=== PATIENT | female | born 1990 | race Caucasian/White ===

== ENCOUNTER 2016-10-09 17:45 | Emergency (ER) | payer OTHER ==
[2016-10-09 17:57] VITALS: RESP 16
[2016-10-09] MEDS ORDERED: MAG HYDROX/AL HYDROX/SIMETH 30 ML, HYOSCYAMINE ELIXIR 10 ML, CIMETIDINE HCL 300 MG, LID... PO STA ×4 (18:11)
--- NOTE | 2016-10-09 18:42 | ED ---
General Adult HPI - General Chief complaint: Allergic Reaction Stated complaint: Allergic Reaction Time Seen by Provider: 10/09/16 18:05 Source: patient, RN notes reviewed Mode of arrival: ambulatory Limitations: no limitations - History of Present Illness Initial comments: Patient's 26-year-old female who presents emergency room today with a chief complaint of possible ALLERGIC reaction. She states she feels like something stuck in her throat. She states that it's been going on for the last 2 days. She states that earlier today approximate 5 PM she felt like she broke doctor rash is feeling very hot. She states that she began new medications of both by second Lexapro recently over the past week due to abdominal pain that she was experiencing. Patient denies any other complaints or symptoms. Denies any family history of cardiac disease. Patient denies any recent fever, chills, shortness of breath,back pain, abdominal pain, nausea or vomiting, numbness or tingling, dysuria or hematuria, constipation or diarrhea, headaches or visual changes, or any other complaints. - Related Data Home Medications Medication Instructions Recorded Confirmed Omeprazole 20 mg PO DAILY 03/14/16 10/09/16 Escitalopram [Lexapro] 10 mg PO DAILY 10/09/16 10/09/16 L.acidoph,Paracasei, B.lactis 1 cap PO DAILY 10/09/16 10/09/16 [Probiotic] Multivit with Calcium,Iron,Min 1 tab PO DAILY 10/09/16 10/09/16 [Women's Multivitamin] Previous Rx's Medication Instructions Recorded predniSONE 60 mg PO DAILY 5 Days 10/09/16 Allergies Allergy/AdvReac Type Severity Reaction Status Date / Time No Known Allergies Allergy Verified 10/09/16 18:51 Review of Systems ROS Statement: Those systems with pertinent positive or pertinent negative responses have been documented in the HPI. ROS Other: All systems not noted in ROS Statement are negative. Past Medical History Past Medical History: GERD/Reflux Additional Past Medical History / Comment(s): stomach discomfort History of Any Multi-Drug Resistant Organisms: None Reported Past Surgical History: Appendectomy Past Anesthesia/Blood Transfusion Reactions: No Reported Reaction Past Psychological History: No Psychological Hx Reported Smoking Status: Never smoker Past Alcohol Use History: Occasional Past Drug Use History: None Reported - Past Family History Mother Family Medical History: No Reported History General Exam - General Exam Comments Initial Comments: General: The patient is awake and alert, in no distress, and does not appear acutely ill. Eye: Pupils are equal, round and reactive to light, extra-ocular movements are intact. No nystagmus. There is normal conjunctiva bilaterally. No signs of icterus. Ears, nose, mouth and throat: There are moist mucous membranes and no oral lesions. Neck: The neck is supple, there is no tenderness or JVD. Cardiovascular: There is a regular rate and rhythm. No murmur, rub or gallop is appreciated. Respiratory: Lungs are clear to auscultation, respirations are non-labored, breath sounds are equal. No wheezes, stridor, rales, or rhonchi. Gastrointestinal: Soft, non-distended, non-tender abdomen without masses or organomegaly noted. There is no rebound or guarding present. No CVA tenderness. Bowel sounds are unremarkable. Musculoskeletal: Normal ROM, no tenderness. Strength 5/5. Sensation intact. Pulses equal bilaterally 2+. Neurological: A&O x 3. CN II-XII intact, There are no obvious motor or sensory deficits. Coordination appears grossly intact. Speech is normal. Skin: Skin is warm and dry and no rashes or lesions are noted. Psychiatric: Cooperative, appropriate mood & affect, normal judgment. Limitations: no limitations Course Vital Signs 10/09/16 17:53 Temperature 97.0 F L Pulse Rate 79 Respiratory 16 Rate Blood Pressure 117/72 O2 Sat by Pulse 97 Oximetry EKG Findings - EKG Comments: EKG Findings:: EKG performed at 1801: A 12-lead EKG was performed and interpreted by me as showing the following: Rate is 63, and rhythm is normal sinus. There are normal QRS complexes and normal R-wave progression. ST segments have no elevation or depression, and IL segments appear normal. Medical Decision Making - Medical Decision Making Case discussed in detail with attending physician Dr. Hernandez. Patient's vitals stable. Patient reexamined at this time shows no signs of distress. EKG shows normal sinus rhythm. Chest x-rays negative. Patient's symptoms been ongoing over the last 2 days. There is no rash or the emergency room. Patient advised to use Benadryl advised use half dose of her Lexapro follow-up family doctor tomorrow. Will be given a prescription for steroids. Advised to use if the rash returns or if any symptoms increase worsen. Disposition Clinical Impression: Allergic reaction Disposition: HOME SELF-CARE Condition: Good Instructions: Urticaria (ED) Additional Instructions: Please follow-up with family doctor tomorrow and discuss decreasing dose of Lexapro. Please use Benadryl one to 2 tabs every 6 hours as needed. Please use steroids as prescribed if the rash returns. Please return to emergency room for any other concerns. Prescriptions: predniSONE 60 mg PO DAILY 5 Days Referrals: Bebe Arndt MD [Primary Care Provider] - 1-2 days Time of Disposition: 19:31
--- NOTE | 2016-10-09 18:52 | XR ---
EXAMINATION TYPE: XR chest 2V DATE OF EXAM: 10/09/2016 6:47 PM COMPARISON: NONE HISTORY: Cough per order. Additional symptoms of lower chest pain per patient. TECHNIQUE: Frontal and lateral views of the chest are obtained. FINDINGS: There is no focal air space opacity, pleural effusion, or pneumothorax seen. The cardiac silhouette size is within normal limits. The osseous structures are intact. Impression: No acute process identified.
[2016-10-09 20:18] VITALS: BP 135/87; PULSE 87; TEMP 97.8
== END 2016-10-09 20:17 | disposition home or self-care (01) ==
LOC: EC 17:45
DX: T78.40XA Allergy, unspecified, initial encounter (principal); K21.9 Gastro-esophageal reflux disease without esophagitis; Z79.899 Other long term (current) drug therapy
CPT/HCPCS: 71020; 93005; 99283

== ENCOUNTER 2017-04-20 11:16 | Emergency (ER) | payer OTHER ==
[2017-04-20] MEDS ORDERED: IBUPROFEN 600 MG TAB PO STA (11:45)
[2017-04-20 11:48] VITALS: BP 141/70; PULSE 105; RESP 18
--- NOTE | 2017-04-20 11:58 | ED ---
General Adult HPI - General Chief complaint: Extremity Injury, Upper Stated complaint: RT WRIST INJURY FROM FALL Time Seen by Provider: 04/20/17 11:25 Source: patient, RN notes reviewed Mode of arrival: ambulatory Limitations: no limitations - History of Present Illness Initial comments: Patient is a 26-year-old female who presents emergency room today with chief complaint of a right wrist injury that occurred approximately 3) she does admit that she had socks and the floor was slippery when she is trying to kick a mattress pad lost her balance falling backwards on the right wrist. Patient states that she does have tenderness with certain movements of flexion and extension at the right wrist. She denies any head injury or loss consciousness. Denies any other complaints. Patient denies any recent fever, chills, shortness of breath, chest pain, back pain, abdominal pain, nausea or vomiting, numbness or tingling, headaches or visual changes, or any other complaints. - Related Data Home Medications Medication Instructions Recorded Confirmed Escitalopram [Lexapro] 10 mg PO DAILY 10/09/16 04/20/17 Previous Rx's Medication Instructions Recorded Ibuprofen [Motrin] 800 mg PO Q6HR #30 tab 04/20/17 Allergies Allergy/AdvReac Type Severity Reaction Status Date / Time No Known Allergies Allergy Verified 04/20/17 12:25 Review of Systems ROS Statement: Those systems with pertinent positive or pertinent negative responses have been documented in the HPI. ROS Other: All systems not noted in ROS Statement are negative. Past Medical History Past Medical History: GERD/Reflux Additional Past Medical History / Comment(s): stomach discomfort History of Any Multi-Drug Resistant Organisms: None Reported Past Surgical History: Appendectomy Past Anesthesia/Blood Transfusion Reactions: No Reported Reaction Past Psychological History: No Psychological Hx Reported Smoking Status: Never smoker Past Alcohol Use History: Occasional Past Drug Use History: None Reported - Past Family History Mother Family Medical History: No Reported History General Exam - General Exam Comments Initial Comments: General: The patient is awake and alert, in no distress, and does not appear acutely ill. Neck: The neck is supple, there is no tenderness or JVD. Cardiovascular: There is a regular rate and rhythm. No murmur, rub or gallop is appreciated. Respiratory: Lungs are clear to auscultation, respirations are non-labored, breath sounds are equal. No wheezes, stridor, rales, or rhonchi. Musculoskeletal: Patient does have a normal appearance of the right wrist. There is some mild swelling. Shows limited range of motion with flexion and extension and with supination. Tender to palpation minimally over the distal ulna with increased tenderness to the distal radius. Full range motion of the right digits down to the hand. No tenderness. No tenderness to right elbow. Sensations intact pulses equal bilateral 2+. Neurological: A&O x 3. CN II-XII intact, There are no obvious motor or sensory deficits. Coordination appears grossly intact. Speech is normal. Skin: Skin is warm and dry and no rashes or lesions are noted. Psychiatric: Normal mood and affect. Limitations: no limitations Course Vital Signs 04/20/17 04/20/17 11:21 11:45 Temperature 97.9 F Pulse Rate 83 105 H Respiratory 16 18 Rate Blood Pressure 115/73 141/70 O2 Sat by Pulse 100 97 Oximetry Medical Decision Making - Medical Decision Making X-ray reviewed and negative for any acute fracture dislocation. Patient does have tenderness in the snuffbox of the right wrist. Has been splinted in a short arm thumb spica OCL. Neurovascular rechecked and intact. Patient was called orthopedics in the next 2 days. Advised continued ice elevate the affected area. Disposition Clinical Impression: Wrist injury Disposition: HOME SELF-CARE Condition: Good Instructions: Wrist Injury (ED) Additional Instructions: Please follow-up orthopedics over the next 2 days. Please leave splint in place until follow-up appointment. Please continue to ice elevate the affected areas 4 times a day for 20 minutes at a time. Please use pain medication as prescribed. Please return to emergency room for any other concerns. Prescriptions: Ibuprofen [Motrin] 800 mg PO Q6HR #30 tab Referrals: Bebe Arndt MD [Primary Care Provider] - 1-2 days Alex Mesa MD [STAFF PHYSICIAN] - 1-2 days Time of Disposition: 12:35
--- NOTE | 2017-04-20 12:31 | XR ---
EXAMINATION TYPE: XR wrist complete RT DATE OF EXAM: 04/20/2017 COMPARISON: NONE HISTORY: 26 year-old female with pain after fall TECHNIQUE: 4 views FINDINGS: The radiocarpal and and distal radioulnar joints as well as the midcarpal compartment appear intact. No acute fracture, subluxation, or dislocation seen. IMPRESSION: No acute osseous abnormality seen.
[2017-04-20 12:44] VITALS: TEMP 98.1
== END 2017-04-20 12:40 | disposition home or self-care (01) ==
LOC: EC 11:16
DX: S69.91XA Unspecified injury of right wrist, hand and finger(s), initial encounter (principal); Z79.899 Other long term (current) drug therapy; W01.0XXA Fall on same level from slipping, tripping and stumbling without subsequent striking against object, initial encounter
CPT/HCPCS: 29125; 99283

== ENCOUNTER 2017-08-13 14:07 | Emergency (ER) | payer OTHER ==
--- NOTE | 2017-08-13 14:58 | ED ---
Abdominal Pain HPI - General Chief Complaint: Abdominal Pain Stated Complaint: 15 wks preg/cramping Time Seen by Provider: 08/13/17 14:29 Source: patient Mode of arrival: ambulatory Limitations: no limitations - History of Present Illness Initial Comments: 26-year-old female patient presents to the emergency department today with complaints of labial swelling and suprapubic cramping. Patient states that the symptoms started early today. States and she was taking a shower she noticed that her bilateral labia seemed more swollen than usual. She states she is also been having lower abdominal cramping since early this morning. She denies any abnormal vaginal bleeding or discharge. Patient states she is having some mild dysuria and urinary frequency. She states that she is 15 weeks . She is . States that she did have her last appointment 1 week ago. Did have STD testing and Pap smear at that time. She denies any constipation or diarrhea. Denies any fevers or chills. Patient denies any recent rash, shortness breath, chest pain, nausea, vomiting, numbness, tingling , dizziness, weakness, hematuria, headache, visual changes, or any other complaints. - Related Data Home Medications Medication Instructions Recorded Confirmed Gummy 1 tab PO DAILY 08/13/17 08/13/17 Allergies Allergy/AdvReac Type Severity Reaction Status Date / Time No Known Allergies Allergy Verified 08/13/17 14:47 Review of Systems ROS Statement: Those systems with pertinent positive or pertinent negative responses have been documented in the HPI. ROS Other: All systems not noted in ROS Statement are negative. Past Medical History Past Medical History: GERD/Reflux Additional Past Medical History / Comment(s): stomach discomfort History of Any Multi-Drug Resistant Organisms: None Reported Past Surgical History: Appendectomy Past Anesthesia/Blood Transfusion Reactions: No Reported Reaction Past Psychological History: No Psychological Hx Reported Smoking Status: Never smoker Past Alcohol Use History: Occasional Past Drug Use History: None Reported - Past Family History Mother Family Medical History: No Reported History General Exam Limitations: no limitations General appearance: alert, in no apparent distress, other (This is a well- developed, well-nourished adult female patient in no acute distress. Vital signs upon presentation are temperature 98.0F, pulse 94, respirations 20, blood pressure 118/58, pulse ox 99% on room air.) Eye exam: Present: normal appearance, PERRL, EOMI. Absent: scleral icterus, conjunctival injection, periorbital swelling Respiratory exam: Present: normal lung sounds bilaterally. Absent: respiratory distress, wheezes, rales, rhonchi, stridor Cardiovascular Exam: Present: regular rate, normal rhythm, normal heart sounds. Absent: systolic murmur, diastolic murmur, rubs, gallop, clicks GI/Abdominal exam: Present: soft, tenderness (Suprapubic tenderness), normal bowel sounds. Absent: distended, guarding, rebound, rigid External exam: Present: normal external exam, swelling (Mild generalized labial swelling), other (No tenderness or external discharge.). Absent: erythema, lesions, lacerations, ecchymosis Neurological exam: Present: alert, oriented X3, CN II-XII intact Psychiatric exam: Present: normal affect, normal mood Skin exam: Present: warm, dry, intact, normal color. Absent: rash Course Vital Signs 08/13/17 08/13/17 14:21 16:33 Temperature 98.0 F 97.6 F Pulse Rate 94 89 Respiratory 20 18 Rate Blood Pressure 118/58 112/68 O2 Sat by Pulse 99 99 Oximetry Medical Decision Making - Lab Data Lab Results 08/13/17 Range/Units 14:52 Urine Color Light Yellow Urine Appearance Clear (Clear) Urine pH 7.0 (5.0-8.0) Ur Specific [place] 1.008 (1.001-1.035) Urine Protein Negative (Negative) Urine Glucose (UA) Negative (Negative) Urine Ketones Negative (Negative) Urine Blood Negative (Negative) Urine Nitrite Negative (Negative) Urine Bilirubin Negative (Negative) Urine Urobilinogen <2.0 (<2.0) mg/dL Ur Leukocyte Esterase Negative (Negative) - Radiology Data Radiology results: report reviewed, image reviewed 26-year-old female patient presented to the emergency department today for complaints of lower abdominal cramping and swelling in her bilateral labia. Physical examination reveals very mild swelling to the bilateral labia with no redness, tenderness, or evidence of fluid collection. Abdomen is soft and nontender. Urinalysis is negative for any acute abnormalities. Did perform ultrasound of the abdomen and fetus which showed no acute complications. Patient will be discharged home at this time to follow-up with her SURGERY NURSE as soon as possible. She is instructed to return here immediately for any new, worsening, or concerning symptoms. She verbalizes understanding and agrees with this plan. Disposition Clinical Impression: Abdominal pain during , Labial swelling Disposition: HOME SELF-CARE Condition: Good Instructions: Abdominal Pain in (ED) Additional Instructions: Follow-up with your SURGERY NURSE as soon as possible. Return here immediately for any new, worsening, or concerning symptoms. Referrals: Bebe Arndt MD [Primary Care Provider] - 1-2 days Time of Disposition: 16:21
[2017-08-13 15:04] LABS: Appearance,Urine Clear (Clear); Bilirubin,Urine Negative (Negative); Blood,Urine Negative (Negative); Color,Urine Light Yellow; Glucose,Urine (UA) Negative (Negative); Ketones,Urine Negative (Negative); Leukocyte Esterase,Urine Negative (Negative); Nitrite,Urine Negative (Negative); Protein,Urine Negative (Negative); Specific Gravity,Urine 1.008 (1.001-1.035); Urobilinogen,Urine <2.0 mg/dL (<2.0)
--- NOTE | 2017-08-13 16:07 | US ---
EXAMINATION TYPE: US OB >= 14 wk fetus Early second trimester. DATE OF EXAM: 08/13/2017 COMPARISON: None CLINICAL HISTORY: Pain TECHNIQUE: Transabdominal (TA) GESTATIONAL AGE / DATING Physician Established: (15 weeks/4 days) EDC: 01/31/18 Dates by LMP: LMP unknown (Dates by First Scan: 15 weeks/4 days) EDC: 01/31/18 Dates by Current Scan: (16 weeks/0 days) EDC: 01/28/18 SURVEY IUP: Single PLACENTA: Posterior PREVIA: possibly low lying, difficult to assess due to age SHARIFA: 13.0 cm CERVICAL LENGTH (transabdominal: norm > 3.0cm): 3.1 cm BIOMETRY PRESENTATION: Vertex BPD: 3.2 cm 16.0 weeks / 0 days HC: 12.1 cm 16 weeks / 0 days AC: 9.7 cm 15 weeks / 6 days FL: 1.9 cm 15 weeks / 5 days ESTIMATED WEIGHT IN GRAMS: 135 grams ESTIMATED WEIGHT IN LBS/OZ: 0 lbs. 5 oz. WEIGHT PERCENTAGE BASED ON ESTABLISHED DATES: 57.2% HC/AC: 1.2 FL/AC: 19.9 HEART RATE: 141 bpm RHYTHM: Normal Single live intrauterine gestation is confirmed. Normal cephalad presentation to fetus is currently i dentified. There is no convincing ultrasound evidence for placenta previa, calvarium obscures p ortion of cervix however. Amniotic fluid index is felt within normal limits. biometry measureme nts are congruent and felt within normal limits. IMPRESSION: As above, no ultrasound evidence for complication.
[2017-08-13 16:34] VITALS: BP 112/68; PULSE 89; RESP 18; TEMP 97.6
== END 2017-08-13 16:34 | disposition home or self-care (01) ==
LOC: EC 14:07
DX: O26.892 Other specified pregnancy related conditions, second trimester (principal); R10.30 Lower abdominal pain, unspecified; O99.89 Other specified diseases and conditions complicating pregnancy, childbirth and the puerperium; N90.89 Other specified noninflammatory disorders of vulva and perineum; R30.0 Dysuria; R35.0 Frequency of micturition; Z79.899 Other long term (current) drug therapy; Z90.49 Acquired absence of other specified parts of digestive tract; Z3A.15 15 weeks gestation of pregnancy
CPT/HCPCS: 76805; 81003; 99284

== ENCOUNTER 2018-01-31 10:54 | Inpatient (IN) | payer OTHER ==
[2018-02-06] MEDS ORDERED: OXYTOCIN 10 UNIT/ML 1 ML VIAL IM PRN (06:20)
[2018-02-06] MEDS ORDERED: TERBUTALINE 1 MG/ML VIAL SQ PRN (06:20)
[2018-02-06] MEDS ORDERED: CARBOPROST TROMETHAMINE 250 MCG/ML 1 ML AMP IM PRN (06:20)
[2018-02-06] MEDS ORDERED: METHYLERGONOVINE 0.2 MG/ML 1 ML AMP IM PRN (06:20)
[2018-02-06] MEDS ORDERED: LIDOCAINE HCL/PF 20 MG/ML ML SQ PRN (06:20)
[2018-02-06 06:29] VITALS: BMI 39.1
[2018-02-06] MEDS ORDERED: OXYTOCIN 20 UNITS/1000 ML NS 1,000 ML IV SCH (06:30)
[2018-02-06] MEDS: LACTATED RINGERS 1,000 ML IV SCH ×2 (06:33→19:21)
[2018-02-06 06:38] LABS: Basophils % (A) 0 %; Eosinophils # (A) 0.1 k/uL (0-0.7); Eosinophils % (A) 1 %; HGB 12.1 gm/dL (11.4-16.0); Lymphocytes # (A) 1.9 k/uL (1.0-4.8); Lymphocytes % (A) 18 %; MCH 31.1 pg (25.0-35.0); MCHC 33.5 g/dL (31.0-37.0); MCV 92.7 fL (80.0-100.0); Mean Platelet Volume 9.8; Monocytes # (A) 0.5 k/uL (0-1.0); Monocytes % (A) 5 %; Neutrophils # (A) 7.5 k/uL (1.3-7.7); Neutrophils % (A) 73 %; Platelet Count 191 k/uL (150-450); RBC 3.88 m/uL (3.80-5.40); RDW 13.3 % (11.5-15.5); WBC 10.2 k/uL (3.8-10.6)
--- NOTE | 2018-02-06 08:27 | P.HPOB ---
History of Present Illness H&P Date: 02/06/18 Chief Complaint: IUP at 40-6/7 weeks This is a 27-year-old 1 para 0 at 40-6/7 weeks that presents to labor and delivery for induction of labor secondary to postdates. Patient states irregular contractions, good movement denies vaginal bleeding or loss of fluid. blood work she has a blood type of O+, rubella immune, hepatitis B surface antigen negative, GBS negative, HIV negative, RPR nonreactive. Next para patient has been receiving routine care, and transferred into my office at 24 weeks of gestation. Review of Systems Constitutional: Denies chills, Denies fatigue, Denies fever Ears, nose, mouth and throat: Denies headache Cardiovascular: Reports leg edema, Denies chest pain Respiratory: Denies cough, Denies dyspnea Gastrointestinal: Denies constipation, Denies diarrhea Genitourinary: Reports Past Medical History Past Medical History: GERD/Reflux Additional Past Medical History / Comment(s): stomach discomfort History of Any Multi-Drug Resistant Organisms: None Reported Past Surgical History: Appendectomy Past Anesthesia/Blood Transfusion Reactions: No Reported Reaction Past Psychological History: No Psychological Hx Reported Smoking Status: Never smoker Past Alcohol Use History: Occasional Past Drug Use History: None Reported - Past Family History Mother Family Medical History: No Reported History Medications and Allergies Home Medications Medication Instructions Recorded Confirmed Type Gummy 1 tab PO DAILY 08/13/17 02/06/18 History Allergies Allergy/AdvReac Type Severity Reaction Status Date / Time No Known Allergies Allergy Verified 02/06/18 06:19 Exam Osteopathic Statement: *. No significant issues noted on an osteopathic structural exam other than those noted in the History and Physical/Consult. Vital Signs Temp Pulse Resp BP Pulse Ox 02/06/18 06:17 97.1 F L 97 18 126/68 98 Intake and Output 02/05/18 02/06/18 02/06/18 22:59 06:59 14:59 Other: Weight 100.244 kg - OBG Physical Exam Abdomen: gravid Cervix: 1/50/-2, AROM clear fluid obtained without difficulty Uterus: enlarged Results Result Diagrams: 02/06/18 06:20 Assessment and Plan (1) Post-dates Current Visit: Yes Status: Acute Code(s): O48.0 - POST-TERM SNOMED Code(s): 21015433 Plan: Admit to labor and delivery for Pitocin induction of labor. Patient does desire epidural eventually for pain control. Time with Patient: Less than 30
[2018-02-06] MEDS ORDERED: BUTORPHANOL 1 MG/ML 1 ML VIAL IV PRN (13:03)
[2018-02-06] MEDS ORDERED: fentaNYL (PF) 50 MCG/ML 5 ML AMP ONE ×2 (15:18→23:34)
[2018-02-06] MEDS ORDERED: ROPIVACAINE 5MG/ML 20ML VIAL ONE ×2 (15:18→23:34)
[2018-02-06] MEDS ORDERED: SODIUM CHLORIDE 0.9% 100 ML BAG ONE ×2 (15:18→23:34)
[2018-02-06] MEDS ORDERED: ceFAZolin IN SWFI 2 GM/20 ML SYRINGE IVP ONE (22:15)
[2018-02-06] MEDS ORDERED: CITRIC ACID-SODIUM CITRATE 15 ML CUP PO ONE (22:15)
[2018-02-06] MEDS ORDERED: ONDANSETRON 4 MG/2 ML VIAL ONE (23:34)
[2018-02-06] MEDS ORDERED: KETOROLAC 30 MG/ML 1 ML VIAL ONE (23:34)
--- NOTE | 2018-02-07 00:48 | P.OP ---
Date of Procedure: 02/07/18 Preoperative Diagnosis: IUP at 40-6/7 weeks, arrest of first stage of labor Postoperative Diagnosis: Same Procedure(s) Performed: Primary low transverse section Anesthesia: epidural Surgeon: Meghna Crocker Slip Cover Sewer #1: Mae Barrow Estimated Blood Loss (ml): 500 IV fluids (ml): 800 Urine output (ml): 200 Pathology: none sent Condition: stable Disposition: PACU Indications for Procedure: Arrest of first stage of labor Operative Findings: Normal uterus tubes and ovaries were appreciated, male was delivered at 2351, weight of 9 lbs. 1 oz., Apgars of 9 and 9 at one and 5 minutes respectively Description of Procedure: The patient was prepped and draped in the usual fashion after epidural anesthesia was found be adequate. A Pfannenstiel incision was made and extended of the abdominal cavity without difficulty. The bladder peritoneum was elevated and incised and reflected distally. A 2 cm incision was made in the transverse plane of the lower uterine segment to enter the uterus at which time clear fluid was noted. The incision was extended in both directions using the bandage scissors. The head was encountered within the field and delivered up and through the incision where the nose and mouth were thoroughly suctioned. Remainder of the infant was delivered onto the surgical field where the cord was doubly clamped, cut, and the was passed for resuscitative measures with weight and Apgars as noted above. A segment of cord was then doubly clamped, cut, and set aside should cord gases become necessary. The placenta was delivered manually, intact, and was grossly normal with a grossly normal three-vessel cord. The uterus was exteriorized and the interior cavity of the uterus swept of any remaining placental and membranous fragments with a laparotomy sponge. The margins of the incision were grasped with allis clamps and the incision closed in 2 layers. First layer was a running locking layer of 0vicryl from margin to margin followed by a second layer of imbricating 0 vicryl from margin to margin. Any small points of bleeding were then made hemostatic with the Bovie. Once hemostasis was achieved, the posterior cul-de- sac was suctioned with a guard and the uterine and ovarian findings are as noted above. The uterus was replaced within the abdominal cavity and the gutters swept of any remaining blood fluid or clot. The incision was again reexamined and hemostasis was noted to be excellent. Any small point of bleeding were made hemostatic with the Bovie. Once hemostasis was achieved the parietal peritoneum was loosely reapproximated. The layer of muscles were examined and made hemostatic with the Bovie. Attention was then turned to the fascia which was closed with 2 running stitches of 0 Vicryl proceeding from the lateral margins to the midpoint. The subcutaneous tissues were irrigated, made hemostatic with the Bovie, and reapproximated with a running stitch of 30 vicryl. The skin was reapproximated with 4-0 vicryl. Estimated blood loss for the case was approximately 500 mL. All sponge instrument and needle counts are correct. There were no complications. The patient tolerated the procedure well and proceeded to the recovery room in stable condition. Both mother and infant are resting comfortably in recovery.
[2018-02-07] MEDS: LACTATED RINGERS 1,000 ML IV SCH (01:06)
[2018-02-07] MEDS: ACETAMINOPHEN IV (For NPO) 1,000 MG in EMPTY BAG 1 BAG IVPB SCH ×3 (01:58→17:16)
[2018-02-07] MEDS ORDERED: IBUPROFEN IV 800 MG in SODIUM CHLORIDE 0.9% 250 ML IV ONE (08:00)
--- NOTE | 2018-02-07 08:05 | P.PNOBGPC ---
Subjective - Subjective Principal diagnosis: POD 1 LTCS, arrest of first stage of labor Interval history: Patient has done well overnight. She is ambulating to the bathroom without difficulty. [place] catheter was just discontinued this morning and we are awaiting spontaneous void. She states her pain is well-controlled. Her lochia is minimal at this time. Patient reports: Reports appetite normal, Reports pain well controlled : doing well Objective - Vital Signs Latest vital signs: Vital Signs Temp Pulse Resp BP Pulse Ox 02/07/18 07:46 98.6 F 100 16 121/73 02/07/18 04:00 98 F 88 15 109/68 02/07/18 02:30 97.1 F L 91 16 124/66 97 02/07/18 02:00 98.6 F 101 H 16 121/77 98 02/07/18 01:30 98.2 F 103 H 16 128/64 97 02/07/18 01:15 103 H 16 136/99 98 02/07/18 01:00 99.0 F 96 16 139/65 97 02/07/18 00:45 99.1 F 109 H 16 152/75 98 02/07/18 00:30 98.8 F 109 H 16 129/80 99 Intake and Output 02/06/18 02/07/18 02/07/18 22:59 06:59 14:59 Output Total 300 100 Balance -300 -100 Output: Urine 300 100 Straight 150 Other: Voiding Method Indwelling Catheter # Voids 1 - Exam Extremities: Present: edema Abdomen: Present: normal appearance, soft Incision: Present: normal, dry, intact Uterus: Present: firm Assessment and Plan (1) Post-dates Current Visit: Yes Status: Acute Code(s): O48.0 - POST-TERM SNOMED Code(s): 11260895 (2) S/P section Current Visit: Yes Status: Acute Code(s): Z98.891 - HISTORY OF UTERINE SCAR FROM PREVIOUS SURGERY SNOMED Code(s): 767601398 (3) Arrested labor Current Visit: Yes Status: Acute Code(s): O62.1 - SECONDARY UTERINE INERTIA SNOMED Code(s): 56989295 Plan: We'll continue routine postoperative care.
[2018-02-07 09:51] LABS: Basophils % (A) 0 %; Eosinophils % (A) 0 %; Lymphocytes % (A) 8 %; MCH 31.6 pg (25.0-35.0); MCV 92.9 fL (80.0-100.0); Monocytes # (A) 0.6 k/uL (0-1.0); Monocytes % (A) 5 %; Neutrophils # (A) 10.4 k/uL (1.3-7.7); Neutrophils % (A) 85 %; Platelet Count 125 k/uL (150-450); RBC 2.91 m/uL (3.80-5.40); RDW 13.2 % (11.5-15.5); WBC 12.3 k/uL (3.8-10.6)
[2018-02-07 09:59] LABS: HGB 9.2 gm/dL (11.4-16.0)
[2018-02-07] MEDS ORDERED: METOCLOPRAMIDE 5 MG/ML 2 ML VIAL IVP PRN (15:50)
[2018-02-07] MEDS ORDERED: ONDANSETRON 4 MG/2 ML VIAL IVP PRN (15:50)
[2018-02-07] MEDS ORDERED: diphenhydrAMINE 50 MG CAP PO PRN (15:50)
[2018-02-07] MEDS ORDERED: diphenhydrAMINE 25 MG CAP PO PRN (15:50)
[2018-02-07] MEDS ORDERED: diphenhydrAMINE 50 MG/ML 1 ML VIAL IVP PRN ×2 (15:50)
[2018-02-07] MEDS ORDERED: NALOXONE 0.4 MG/ML 1 ML VIAL IV PRN (15:50)
[2018-02-07] MEDS ORDERED: ZOLPIDEM 5 MG TAB PO PRN (15:50)
[2018-02-07] MEDS ORDERED: OXYTOCIN 20 UNITS/1000 ML NS 1,000 ML IV SCH (16:00)
[2018-02-07] MEDS ORDERED: LACTATED RINGERS 1,000 ML IV SCH (16:00)
[2018-02-07] MEDS: IBUPROFEN 600 MG TAB PO PRN ×2 (16:22→23:43)
[2018-02-07] MEDS ORDERED: SIMETHICONE 80 MG CHEWABLE PO PRN (17:24)
[2018-02-07] MEDS: ACETAMINOPHEN TAB 325 MG TAB PO PRN (17:38)
[2018-02-07] MEDS ORDERED: SENNOSIDES-DOCUSATE SODIUM 1 EACH TAB PO SCH (20:00)
[2018-02-07 21:29] VITALS: TEMP 98.5
[2018-02-08] MEDS: ACETAMINOPHEN TAB 325 MG TAB PO PRN (05:08)
[2018-02-08 08:13] LABS: Basophils % (A) 0 %; Eosinophils # (A) 0.1 k/uL (0-0.7); Eosinophils % (A) 1 %; HCT 25.1 % (34.0-46.0); HGB 8.5 gm/dL (11.4-16.0); Lymphocytes # (A) 1.4 k/uL (1.0-4.8); Lymphocytes % (A) 12 %; MCH 31.6 pg (25.0-35.0); MCHC 33.7 g/dL (31.0-37.0); MCV 93.9 fL (80.0-100.0); Mean Platelet Volume 10.7; Monocytes # (A) 0.4 k/uL (0-1.0); Monocytes % (A) 4 %; Neutrophils # (A) 8.8 k/uL (1.3-7.7); Neutrophils % (A) 81 %; Platelet Count 138 k/uL (150-450); RBC 2.67 m/uL (3.80-5.40); RDW 13.3 % (11.5-15.5); WBC 10.9 k/uL (3.8-10.6)
[2018-02-08] MEDS: IBUPROFEN 600 MG TAB PO PRN ×2 (08:30→14:06)
[2018-02-08 09:19] VITALS: BP 125/82; PULSE 83; RESP 16
--- NOTE | 2018-02-08 10:49 | P.DS ---
Providers Date of admission: 02/06/18 06:00 Expected date of discharge: 02/08/18 Attending physician: Meghna Crocker Primary care physician: Bebe Arndt - Discharge Diagnosis(es) (1) Arrested labor Current Visit: Yes Status: Acute (2) Post-dates Current Visit: Yes Status: Acute (3) S/P section Current Visit: Yes Status: Acute Hospital Course: This is a 27-year-old woman who is admitted at 40-6/7 weeks' gestation for postdates induction of labor. She had arrest of descent and dilatation and underwent a primary low transverse section. Please see the operative report for details. Her postoperative course was unremarkable. By postoperative day #1 she was ambulating and voiding without difficulty. She did have some mild postoperative anemia that was asymptomatic. Her incision was well healing and she had minimal vaginal bleeding. The postoperative day # 2 she continued to do well. She was having some difficulty with breast- feeding. Her pain was well-controlled with oral pain medications. She was therefore discharged home with routine instructions for postoperative care and follow-up. Plan - Discharge Summary New Discharge Prescriptions: New Acetaminophen Tab [Tylenol] 650 mg PO Q4HR PRN tab PRN Reason: Mild Pain Or Fever >= 100.5 Ibuprofen [Motrin] 600 mg PO Q6HR PRN #30 tab PRN Reason: Mild Pain Or Fever >= 100.5 No Action Gummy 1 tab PO DAILY Discharge Medication List Gummy 1 tab PO DAILY 08/13/17 [History] Acetaminophen Tab [Tylenol] 650 mg PO Q4HR PRN tab 02/08/18 [Rx] Ibuprofen [Motrin] 600 mg PO Q6HR PRN #30 tab 02/08/18 [Rx] Activity/Diet/Wound Care/Special Instructions: Follow-up in 2 weeks after surgery in the office. Call the office with any concerning signs or symptoms including fever greater than 101, severe abdominal pain, heavy vaginal bleeding, signs of wound infection, increased swelling or redness of the lower extremities, signs of depression. No driving for 2 weeks after surgery. No heavy lifting or vigorous activity until reevaluated in the office. No intercourse for 6 weeks after delivery. Discharge Disposition: HOME SELF-CARE
== END 2018-02-08 15:50 | disposition home or self-care (01) | DRG 766 ==
LOC: 4FBP 02-06 06:00
PROVIDERS: ADMIT Obstetrics & Gynecology Obstetrics; ATTEND Obstetrics & Gynecology Obstetrics
PROC: 10907ZC Drainage of Amniotic Fluid, Therapeutic from Products of Conception, Via Natural or Artificial Opening (ICD-10-PCS; principal; 2018-02-06)
PROC: 3E033VJ Introduction of Other Hormone into Peripheral Vein, Percutaneous Approach (ICD-10-PCS; principal; 2018-02-06)
PROC: 3E0R3NZ Introduction of Analgesics, Hypnotics, Sedatives into Spinal Canal, Percutaneous Approach (ICD-10-PCS; principal; 2018-02-06)
PROC: 10D00Z1 Extraction of Products of Conception, Low, Open Approach (ICD-10-PCS; principal; 2018-02-06)
PROC: 00HU33Z Insertion of Infusion Device into Spinal Canal, Percutaneous Approach (ICD-10-PCS; principal; 2018-02-06)
DX: O48.0 Post-term pregnancy (principal); Z37.0 Single live birth; K21.9 Gastro-esophageal reflux disease without esophagitis; O62.1 Secondary uterine inertia; O32.4XX0 Maternal care for high head at term, not applicable or unspecified; Z3A.40 40 weeks gestation of pregnancy
CPT/HCPCS: 85025; 86850; 86900; 86901